=== PATIENT | male | born 1980 | race Caucasian/White ===

== ENCOUNTER 2018-04-07 09:20 | Day surgery (SDC) | payer BC ==
[2018-04-04 14:21] VITALS: BMI 27.2
[~2018-04-07 09:20] MED LIST: CLINDAMYCIN 600 MG in DEXTROSE 5% IN WATER 50 ML IVPB ONE; DEXAMETHASONE SOD PHOSPHATE 10 MG/ML 1 ML VIAL IV ONE; DEXAMETHASONE SOD PHOSPHATE 4 MG/ML 1 ML VIAL IV ONE; FAMOTIDINE 20 MG/2 ML VIAL IV ONE; LACTATED RINGERS 1,000 ML IV SCH; LIDOCAINE 1% 20 ML VIAL (10MG/ML) FOR IV START INTRADERMA PRN; MIDAZOLAM 2 MG/2 ML VIAL IV PRN; ONDANSETRON 4 MG/2 ML VIAL IVP ONE
[2018-04-07] MEDS: OXYMETAZOLINE 0.05% NASL SPRAY 1 SPRAY BOTTLE NASAL ONE ×5 (10:15→10:35)
[2018-04-07] MEDS: ONDANSETRON 4 MG/2 ML VIAL IVP ONE ×2 (10:25→14:28)
[2018-04-07 10:29] LABS: Glucose,Whole Blood 82 mg/dL (75-99)
[2018-04-07] MEDS ORDERED: GLYCOPYRROLATE 0.2 MG/ML 2 ML VIAL ONE (12:12)
[2018-04-07] MEDS ORDERED: fentaNYL (PF) 50 MCG/ML 2 ML AMP ONE (12:12)
[2018-04-07] MEDS ORDERED: DEXAMETHASONE SOD PHOS (MDV) 100 MG/10 ML VIAL ONE (12:12)
[2018-04-07] MEDS ORDERED: LIDOCAINE 1% INJ 10MG/ML (20 ML MDV) ONE (12:12)
[2018-04-07] MEDS ORDERED: PROPOFOL 10 MG/ML 20 ML VIAL IV ONE (12:12)
[2018-04-07] MEDS ORDERED: MIDAZOLAM 2 MG/2 ML VIAL ONE (12:12)
[2018-04-07] MEDS ORDERED: ePHEDrine SULFATE/0.9% NACL/PF 50 MG/5 ML SYRINGE IV ONE (12:12)
[2018-04-07] MEDS ORDERED: NEOSTIGMINE 1 MG/ML 10 ML VIAL ONE (12:12)
[2018-04-07] MEDS ORDERED: ROCURONIUM BROMIDE 10 MG/ML 10 ML VIAL IV ONE (12:12)
[2018-04-07] MEDS ORDERED: FLUORESCEIN STRIPS 1 MG STRIP MISCELLANE ONE (12:59)
[2018-04-07] MEDS ORDERED: LIDOCAINE 1%-EPI 1:100,000 20 ML VIAL SQ ONE (12:59)
[2018-04-07] MEDS ORDERED: BUPIVACAIN-EPI 0.5%-1:200,000 30 ML VIAL SQ ONE (13:01)
[2018-04-07] MEDS ORDERED: EPINEPHrine 1 MG/ML (MDV) 30 ML VIAL TOPICAL ONE (13:02)
[2018-04-07] MEDS ORDERED: HYDROcodone/APAP 5-325MG 1 EACH TAB PO ONE (13:50)
[2018-04-07 14:11] VITALS: TEMP 96.8
[2018-04-07] MEDS: fentaNYL (PF) 50 MCG/ML 2 ML AMP IV PRN ×2 (14:15→14:18)
--- NOTE | 2018-04-07 14:19 | P.OP ---
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, severe Chronic maxillary and ethmoid sinusitis/recurring acute sinusitis Adenoid hypertrophy with obstruction Chronic mouth breathing Disordered sleep pattern Postoperative Diagnosis: Same Procedure(s) Performed: Septoplasty Bilateral submucosal resection of the inferior nasal turbinates with outfracturing compression Bilateral functional endoscopic sinus surgery with total ethmoidectomy and maxillary antrostomy with removal of diseased tissue Rhinoplasty Adenoidectomy Anesthesia: GETA Surgeon: Darrion Victoria Estimated Blood Loss (ml): 20 Pathology: other (Sinonasal) Condition: stable Disposition: PACU Indications for Procedure: This patient has been a chronic mouth breather all of his life. The patient was found have a high arched palate and a narrow crossbite from his mouth breathing and has a severe deviated nasal septum with near total nasal occlusion. He was also found have large obstructive adenoids. He had evidence of recurring acute and chronic sinusitis. The etiology for his total nasal occlusion appears to be a combination of both the deviated nasal septum and large adenoids. The inferior turbinates were in a compensatory fashion enlarged also. 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 Due to the fact that he has failed medical therapy including cortisone nasal sprays, multiple antibiotics, antihistamines, [id number] medications, etc. etc. he has decided to proceed forward with surgery. Surgery would include a septoplasty, turbinate surgery, rhinoplasty for his severe right external nasal deformity, adenoidectomy, functional endoscopic sinus surgery. All risks, benefits, and alternative therapies were discussed. Risks of bleeding, infection, penetration of orbit and brain, anesthetic risk, postoperative bleeding etc. were explained in detail. Consent was obtained and all questions were answered. Operative Findings: Patient was found have a external nasal deformity with the nose severely deviated to the right. Septum was very deviated to the left with near total occlusion and large obstructive inferior turbinates. Adenoids were also large and obstructive and there is chronic sinusitis of the ethmoid and maxillary sinuses with diseased tissue present. Description of Procedure: This patient was taken to the operative room and placed in the supine position. A general inhalation anesthetic was administered the patient by mask and subsequently intubated with a cuffed endotracheal tube by the department of anesthesia. The patient was monitored throughout the entire case by the department of anesthesia. Functioning IV line was in place. Septoplasty- the septum was injected with lidocaine 1% with epinephrine 1 100, 000. Approximately 10 minutes were allowed to wait for full vasoconstrictive effects to take place. A caudal incision was made over the caudal portion of the left septum and the mucoperichondrium. A mucoperichondrial flap was developed to the extent of visualization on the left and a crossover incision was made with for the mucoperichondrial flap development to the extent of visualization on the contralateral side. Excellent visualization was obtained. With use of a [place] and highly elevator, incisions were made in the septal cartilage and the septum was rotated into a midline position. We removed redundant strips of septal cartilage and allowed for mobilization and fixation of the septum to the midline. Once the septum was placed back in the midline over the vomerian groove, the incision was closed with a 4.0 rapid Vicryl in a quilting stitch was used to reapproximate the septal flaps and the suture fixated the septum to the midline. Excellent results were obtained. Turbinate- the inferior turbinates were injected with lidocaine 1% with epinephrine 1 100,000. Approximately 10 minutes were allowed wait for full vasoconstrictive effects to take place. After vasoconstrictive effects were in place, we entered the anterior face of the inferior turbinate with a microdebrider utilizing a 2 mm blade. We did a submucosal resection with use of this microdebrider removing bone and submucosal elements bilaterally. After the bilateral submucosal resection was performed with removal of bone and submucosal elements, the inferior turbinates were outfractured and compressed with use of a [employer] nasal elevator. Excellent airway was obtained. At the end of the case bilateral Diaz splints were placed for stabilization. Attention was then paid to the middle turbinates which were brought medial. The uncinate process was visualized and reflected forward with a Chapman probe. With the use of an endoscope utilizing 0 30 and 90 we perform this procedure and utilize this endoscope on a video camera throughout the entire procedure. This was with use of a Kaminski johnna scope. We then took down the uncinate process with a pediatric backbiter and a microdebrider. After the uncinate process was removed the maxillary sinuses were opened widely with use of a straight boss. We open the maxillary sinuses widely and into the maxillary sinuses with endoscopic visualization. Diseased tissue was removed from the maxillary sinuses bilaterally and the sinuses were opened bilaterally. After the maxillary sinuses were opened and diseased tissue was removed attention was then paid to the ethmoid bulla. From a medial to lateral position we took down the ethmoid bulla. We identified the roof of the maxillary sinus and the inferior attachment of the superior turbinate and then took down the basal lamella and into the posterior ethmoid air cells. We did a total ethmoidectomy with use of an up-biting boss. Excellent results were obtained. Diseased tissue was found in the ethmoid sinuses and removed. Xerogel was placed bilaterally. Excellent hemostasis was obtained throughout the entire case and very low blood was noted. The skull base and orbital aguilar looked good. We reinspected the sinonasal region and no bleeding was encountered. Rhinoplasty- the outer nose and columellar were injected with lidocaine 1% with epinephrine 1 100,000. Approximately 10 minutes were allowed wait for full vasoconstrictive effects to take place. The face was sterilely prepped and draped in usual fashion with a Betadine scrub and intranasal Betadine was utilized. Intercartilaginous incisions were made bilaterally. We elevated the nasal tip skin off the nose and extended I dissection over the nasal dorsum. We did not go lateral so the periosteum would still be intact after the osteotomies. After the skin was elevated off the nasal tip and dorsum reevaluated the contour the nose. This patient had an obvious previous fracture with a widened dorsum and bony irregularity. With use of a gold handle rasp, we reached contoured the bony nasal dorsum to her more statically pleasing appearance. The dorsal hump was taken down. We then also took down the cartilaginous dorsal hump with use of a 15 blade. Once we obtained a excellent lateral side profile and contour the nasal dorsum we then refine the nasal tip was suture fixation of the upper medial portion of the lower lateral cartilages. Better definition of the nasal tip was obtained. Once the tip plasty was performed we then closed the upper lateral cartilages over the nasal dorsum to prevent any irregularity of the nasal dorsum. We made sure that we did not get a Anna beak deformity with adequate resection of the cartilaginous nasal dorsum. We then utilized an insulated tip cautery to make an incision above the anterior aspect of the inferior turbinate. With use of Nivert osteotomes, medial and lateral osteotomies were performed and the nasal bones were fractured into position. This cured the wide dorsal abnormality. The patient was found to have the upper lateral cartilage entire adhesion to the lateral nasal wall and the adhesion was broken. Xerogel was placed up under the lysis of the adhesion. Discussed a severe deviation to the right. Patient had an excellent cosmetic result. We closed the intranasal incisions with use of a 50 rapid Vicryl in an interrupted type fashion. The nose was then taped and casted in the usual fashion. Excellent results were obtained. Patient's family was advised that her nose should avoid any trauma and are hitting of the nose. He is not to lay on nose when he sleeps as this may displace her nose and a repeat surgery may be needed. Patient will be sent home with adequate medications for pain and antibiotics and steroids. Patient is to call me if any problems should arise.
[2018-04-07 14:28] VITALS: RESP 16
[2018-04-07] MEDS: HYDROmorphone 1 MG/ML 1 ML SYRINGE IVP ONE ×2 (14:29→14:35)
[2018-04-07] MEDS ORDERED: PROMETHAZINE INJ 25 MG/ML 1 ML VIAL IVPB ONE (16:45)
[2018-04-07 18:03] VITALS: BP 134/87; PULSE 87
== END 2018-04-07 18:04 | disposition home or self-care (01) ==
LOC: OR 09:20
PROVIDERS: ATTEND Otolaryngology
DX: J34.2 Deviated nasal septum (principal); J34.3 Hypertrophy of nasal turbinates; M95.0 Acquired deformity of nose; J32.0 Chronic maxillary sinusitis; J32.2 Chronic ethmoidal sinusitis; J01.21 Acute recurrent ethmoidal sinusitis; J01.01 Acute recurrent maxillary sinusitis; J35.2 Hypertrophy of adenoids; J30.1 Allergic rhinitis due to pollen; I51.9 Heart disease, unspecified; Z79.2 Long term (current) use of antibiotics; Z79.51 Long term (current) use of inhaled steroids; Z79.899 Other long term (current) drug therapy; Z88.2 Allergy status to sulfonamides; Z88.1 Allergy status to other antibiotic agents; Z88.0 Allergy status to penicillin; Z91.013 Allergy to seafood
CPT/HCPCS: 88305; 88300; 30140; 31255; 31267; 42831; 30420; J0171; J2250; J1100 ×2; J2550; J2710; J2405; J2001; J3010; J1170; J2704

== ENCOUNTER 2020-07-16 23:10 | Observation (INO) | payer BC, OTHER ==
[2020-07-16] MEDS ORDERED: SODIUM CHLORIDE 0.9% 1,000 ML IV STA (23:18)
[2020-07-16] MEDS ORDERED: MORPHINE SULFATE 4 MG/ML SYRINGE IV STA (23:18)
--- NOTE | 2020-07-16 23:20 | ED ---
Chest Pain HPI - General Chief Complaint: Chest Pain Stated Complaint: Chest Tightness Time Seen by Provider: 07/16/20 23:17 Source: patient, RN notes reviewed, old records reviewed Mode of arrival: wheelchair Limitations: no limitations - History of Present Illness Initial Comments: This is a 40-year-old male to the ER for evaluation patient presents for evaluation regards to chest pain. Patient has chest pain chest tightness and shortness of breath going on for about an hour prior to arrival. Symptoms have persisted. No other complaints. A little anxiety no recent travel history sick contact appears cough or congestion MD Complaint: chest pain -: hour(s) (1) Onset: during rest Pain Location: substernal Pain Radiation: none Severity: moderate Severity scale (1-10): 4 Quality: tightness Consistency: constant Improves With: nothing Worsens With: nothing Anginal Symptoms: dyspnea Other Symptoms: cough, palpitations Treatments Prior to Arrival: none - Related Data Home Medications Medication Instructions Recorded Confirmed Clindamycin HCl 300 mg PO ONCE 04/04/18 04/07/18 predniSONE 30 mg PO DAILY 04/04/18 04/07/18 metroNIDAZOLE [Flagyl] 250 mg PO TID 04/07/18 04/07/18 Previous Rx's Medication Instructions Recorded HYDROcodone/APAP 5-325MG [[place] 1 - 2 tab PO Q4-6H PRN 3 Days #36 04/07/18 5-325] tab Meloxicam [Mobic] 15 mg PO DAILY #10 tab 04/07/18 metroNIDAZOLE [Flagyl] 500 mg PO Q8HR #30 tab 04/07/18 Allergies Allergy/AdvReac Type Severity Reaction Status Date / Time cefaclor [From Ceclor] Allergy Rash/Hives Verified 07/16/20 23:14 Fish Containing Products Allergy Unknown Verified 07/16/20 23:14 [Fish] Penicillins Allergy Rash/Hives Verified 07/16/20 23:14 ragweed pollen Allergy Unknown Verified 07/16/20 23:14 shellfish derived [Shellfish] Allergy Anaphylaxis Verified 07/16/20 23:14 Sulfa (Sulfonamide Allergy Rash/Hives Verified 07/16/20 23:14 Antibiotics) clindamycin AdvReac Abdominal Verified 07/16/20 23:14 Pain Review of Systems ROS Statement: Those systems with pertinent positive or pertinent negative responses have been documented in the HPI. ROS Other: All systems not noted in ROS Statement are negative. EKG Findings - EKG Comments: EKG Findings:: EKG shows sinus tachycardia 102 ME 148 QRS 86 QTc 461 Past Medical History Past Medical History: Thyroid Disorder Additional Past Medical History / Comment(s): NASAL POLYPS, CHRONIC SINUSITIS History of Any Multi-Drug Resistant Organisms: None Reported Past Surgical History: Orthopedic Surgery Additional Past Surgical History / Comment(s): LEFT WRIST GANGLION CYST REMOVED, TUBES IN EARS Past Anesthesia/Blood Transfusion Reactions: No Reported Reaction Past Psychological History: PTSD Smoking Status: Never smoker Past Alcohol Use History: Occasional Past Drug Use History: None Reported - Past Family History Mother Family Medical History: No Reported History General Exam Limitations: no limitations General appearance: alert, in no apparent distress Head exam: Present: atraumatic, normocephalic, normal inspection Eye exam: Present: normal appearance, PERRL, EOMI. Absent: scleral icterus, conjunctival injection, periorbital swelling ENT exam: Present: normal exam, mucous membranes moist Neck exam: Present: normal inspection. Absent: tenderness, meningismus, lymphadenopathy Respiratory exam: Present: normal lung sounds bilaterally. Absent: respiratory distress, wheezes, rales, rhonchi, stridor Cardiovascular Exam: Present: regular rate, normal rhythm, normal heart sounds. Absent: systolic murmur, diastolic murmur, rubs, gallop, clicks GI/Abdominal exam: Present: soft, normal bowel sounds. Absent: distended, tenderness, guarding, rebound, rigid Extremities exam: Present: normal inspection, full ROM, normal capillary refill. Absent: tenderness, pedal edema, joint swelling, calf tenderness Back exam: Present: normal inspection Neurological exam: Present: alert, oriented X3, CN II-XII intact Psychiatric exam: Present: normal affect, normal mood Skin exam: Present: warm, dry, intact, normal color. Absent: rash Course Vital Signs 07/16/20 07/17/20 23:12 00:30 Temperature 98.9 F Pulse Rate 108 H 98 Respiratory 22 18 Rate Blood Pressure 162/101 131/88 O2 Sat by Pulse 97 95 Oximetry - Reevaluation(s) Reevaluation #1: 07/17/20 00:52 Medical records reviewed Reevaluation #2: 07/17/20 00:52 Symptoms markedly improved here in the emergency department Reevaluation #3: 07/17/20 00:52 Patient informed of results and questions have been answered Chest Pain MDM - MDM 40 male with atypical chest pain coming in for chest pain, patient has improved vital signs here in the ER, normal troponin normal EKG CT of chest is negative. Patient can be discharged Disposition Clinical Impression: Atypical chest pain, Chest pain Disposition: HOME SELF-CARE Condition: Good Instructions (If sedation given, give patient instructions): Chest Pain (ED) Is patient prescribed a controlled substance at d/c from ED?: No Referrals: Mary Becker MD [Primary Care Provider] - 1-2 days
[2020-07-16 23:44] LABS: Basophils # (A) 0.1 k/uL (0-0.2); Basophils % (A) 0 %; Eosinophils # (A) 0.3 k/uL (0-0.7); Eosinophils % (A) 3 %; HCT 45.2 % (39.0-53.0); HGB 15.2 gm/dL (13.0-17.5); Lymphocytes # (A) 1.9 k/uL (1.0-4.8); Lymphocytes % (A) 14 %; MCH 31.4 pg (25.0-35.0); MCHC 33.6 g/dL (31.0-37.0); MCV 93.6 fL (80.0-100.0); Mean Platelet Volume 7.2; Monocytes # (A) 0.8 k/uL (0-1.0); Monocytes % (A) 6 %; Neutrophils % (A) 76 %; Platelet Count 290 k/uL (150-450); RBC 4.83 m/uL (4.30-5.90); RDW 12.8 % (11.5-15.5); WBC 13.2 k/uL (3.8-10.6)
[2020-07-16 23:54] LABS: ALT 23 U/L (4-49); AST 28 U/L (17-59); African American GFR (CKD) >90 (>60 ml/min/1.73 sqM); Albumin 4.6 g/dL (3.5-5.0); Alkaline Phosphatase 83 U/L (38-126); Anion Gap 6 mmol/L; Blood Urea Nitrogen 18 mg/dL (9-20); Calcium 9.9 mg/dL (8.4-10.2); Carbon Dioxide 27 mmol/L (22-30); Chloride 105 mmol/L (98-107); Creatine Kinase 160 U/L (55-170); Glucose 131 mg/dL (74-99); Lipase 144 U/L (23-300); Magnesium 2.1 mg/dL (1.6-2.3); Non-African American GFR(CKD) >90 (>60 ml/min/1.73 sqM); Potassium 4.3 mmol/L (3.5-5.1); Sodium 138 mmol/L (137-145); Total Bilirubin 0.3 mg/dL (0.2-1.3)
[2020-07-16 23:58] LABS: D-Dimer 0.19 mg/L FEU (<0.60); INR 1.1 (<1.2)
--- NOTE | 2020-07-17 00:02 | CT ---
EXAM: CT Angiography Chest With Intravenous Contrast CLINICAL HISTORY: Chest pain. TECHNIQUE: Axial computed tomographic angiography images of the chest with intravenous contrast. CTDI is 17.57 mGy and DLP is 495.90 mGy-cm. This CT exam was performed using one or more of the following dose reduction techniques: automated exposure control, adjustment of the mA and/or kV according to patient size, and/or use of iterative reconstruction technique. MIP reconstructed images were created and reviewed. COMPARISON: No previous study. FINDINGS: Pulmonary arteries: No central pulmonary embolism. Peripheral branch of the pulmonary arteries are unremarkable. Aorta: Thoracic aorta is unremarkable per No thoracic aortic aneurysm. Lungs: Unremarkable. No mass. No consolidation. Pleural space: No pulmonary nodules or pleural effusions. No pneumothorax. Heart: Heart is normal in size. No significant pericardial effusion. No evidence of RV dysfunction. Thyroid: The thyroid gland is unremarkable. Bones/joints: Mild degenerative disc disease of the thoracic spine. No acute fracture. No dislocation. Soft tissues: Unremarkable. Lymph nodes: Unremarkable. No enlarged lymph nodes. Liver: Diffuse fatty liver. Probable simple hepatic cysts. Adrenals: A 0.5 cm probable left adrenal adenoma which requires no follow-up. IMPRESSION: No central or peripheral pulmonary emboli.
[2020-07-17 00:12] LABS: Creatine Kinase MB 3.7 ng/mL (0.0-2.4); Troponin I <0.012 ng/mL (0.000-0.034)
[2020-07-17] MEDS ORDERED: NITROGLYCERIN SL TABS 0.4 MG TAB SUBLINGUAL PRN (01:09)
[2020-07-17] MEDS ORDERED: MORPHINE SULFATE 4 MG/ML SYRINGE IV PRN (01:09)
--- NOTE | 2020-07-17 01:12 | ED ---
Medical Decision Making - Medical Decision Making 40 male DF for evaluation patient Dese for evaluation regards to chest pain, prior to discharge patient had another event of chest pain anxiety became even tearful at times. Short of breath and heart rate was in the 120s sinus tachycardia. Due to these change in symptoms and findings, patient be admitted for cardiac observation possible placement event monitor Records will be requested from Will Lopez as patient did have all testing "" done in the last 2 days - Lab Data Result diagrams: 07/16/20 23:38 07/16/20 23:38 Lab Results 07/16/20 07/16/20 07/16/20 Range/Units 23:38 23:38 23:38 WBC 13.2 H (3.8-10.6) k/uL RBC 4.83 (4.30-5.90) m/uL Hgb 15.2 (13.0-17.5) gm/dL Hct 45.2 (39.0-53.0) % MCV 93.6 (80.0-100.0) fL MCH 31.4 (25.0-35.0) pg MCHC 33.6 (31.0-37.0) g/dL RDW 12.8 (11.5-15.5) % Plt Count 290 (150-450) k/uL MPV 7.2 Neutrophils % 76 % Lymphocytes % 14 % Monocytes % 6 % Eosinophils % 3 % Basophils % 0 % Neutrophils # 10.0 H (1.3-7.7) k/uL Lymphocytes # 1.9 (1.0-4.8) k/uL Monocytes # 0.8 (0-1.0) k/uL Eosinophils # 0.3 (0-0.7) k/uL Basophils # 0.1 (0-0.2) k/uL PT 11.0 (9.0-12.0) sec INR 1.1 (<1.2) APTT 26.0 (22.0-30.0) sec D-Dimer 0.19 (<0.60) mg/L FEU Sodium 138 (137-145) mmol/L Potassium 4.3 (3.5-5.1) mmol/L Chloride 105 (98-107) mmol/L Carbon Dioxide 27 (22-30) mmol/L Anion Gap 6 mmol/L BUN 18 (9-20) mg/dL Creatinine 0.97 (0.66-1.25) mg/dL Est GFR (CKD-EPI)AfAm >90 (>60 ml/min/1.73 sqM) Est GFR (CKD-EPI)NonAf >90 (>60 ml/min/1.73 sqM) Glucose 131 H (74-99) mg/dL Calcium 9.9 (8.4-10.2) mg/dL Magnesium 2.1 (1.6-2.3) mg/dL Total Bilirubin 0.3 (0.2-1.3) mg/dL AST 28 (17-59) U/L ALT 23 (4-49) U/L Alkaline Phosphatase 83 (38-126) U/L Creatine Kinase 160 (55-170) U/L CK-MB (CK-2) (0.0-2.4) ng/mL Troponin I (0.000-0.034) ng/mL NT-Pro-B Natriuret Pep pg/mL Total Protein 8.0 (6.3-8.2) g/dL Albumin 4.6 (3.5-5.0) g/dL Lipase 144 (23-300) U/L 07/16/20 07/16/20 Range/Units 23:38 23:38 WBC (3.8-10.6) k/uL RBC (4.30-5.90) m/uL Hgb (13.0-17.5) gm/dL Hct (39.0-53.0) % MCV (80.0-100.0) fL MCH (25.0-35.0) pg MCHC (31.0-37.0) g/dL RDW (11.5-15.5) % Plt Count (150-450) k/uL MPV Neutrophils % % Lymphocytes % % Monocytes % % Eosinophils % % Basophils % % Neutrophils # (1.3-7.7) k/uL Lymphocytes # (1.0-4.8) k/uL Monocytes # (0-1.0) k/uL Eosinophils # (0-0.7) k/uL Basophils # (0-0.2) k/uL PT (9.0-12.0) sec INR (<1.2) APTT (22.0-30.0) sec D-Dimer (<0.60) mg/L FEU Sodium (137-145) mmol/L Potassium (3.5-5.1) mmol/L Chloride (98-107) mmol/L Carbon Dioxide (22-30) mmol/L Anion Gap mmol/L BUN (9-20) mg/dL Creatinine (0.66-1.25) mg/dL Est GFR (CKD-EPI)AfAm (>60 ml/min/1.73 sqM) Est GFR (CKD-EPI)NonAf (>60 ml/min/1.73 sqM) Glucose (74-99) mg/dL Calcium (8.4-10.2) mg/dL Magnesium (1.6-2.3) mg/dL Total Bilirubin (0.2-1.3) mg/dL AST (17-59) U/L ALT (4-49) U/L Alkaline Phosphatase (38-126) U/L Creatine Kinase (55-170) U/L CK-MB (CK-2) 3.7 H (0.0-2.4) ng/mL Troponin I <0.012 (0.000-0.034) ng/mL NT-Pro-B Natriuret Pep <11 pg/mL Total Protein (6.3-8.2) g/dL Albumin (3.5-5.0) g/dL Lipase (23-300) U/L Disposition Clinical Impression: Atypical chest pain, Chest pain, Tachycardia Disposition: ADMITTED IP TO THIS [facility] Condition: Undetermined Instructions (If sedation given, give patient instructions): Chest Pain (ED) Referrals: Mary Becker MD [Primary Care Provider] - 1-2 days
[2020-07-17] MEDS ORDERED: SODIUM CHLORIDE 0.9% 1,000 ML IV SCH (01:15)
[2020-07-17 03:59] VITALS: RESP 16
[2020-07-17 08:28] VITALS: BP 125/82; PULSE 92; TEMP 98
[2020-07-17] MEDS ORDERED: LEVOTHYROXINE 25 MCG TAB PO SCH (10:30)
--- NOTE | 2020-07-17 12:51 | P.CRDCN ---
History of Present Illness Consult date: 07/17/20 History of present illness: CHIEF COMPLAINT: Chest pain HISTORY OF PRESENT ILLNESS: This is a 40-year-old male with a past medical history significant for recently diagnosed hypothyroidism, anxiety, and PTSD. 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 We have been asked to see the patient in consultation for chest pain. Patient examined this might bedside. Patient states he was evaluated at [facility] 2 nights ago for chest pain. Patient had an echocardiogram completed at that time with an EF of 55% and no wall motion abnormalities noted. He also underwent a cardiolyte stress test with no evidence of stress-induced myocardial ischemia. He was discharged home. Patient presented to [facility] yesterday after he experienced another episode of chest pain. He states he was lying in bed yesterday night when he began to feel a warm sensation coming over his whole body. He reports he began having chest tightness after that. He denies any radiation of the pain. He also reports that he felt his whole body shaking or tremoring. He reports feeling palpitations as well. DIAGNOSTICS: EKG reveals sinus tachycardia Chest CTA: Negative for pulmonary emboli Laboratory data: WBC 13.2. Hemoglobin 15.2. Platelet count 290. D-dimer 0.19. Sodium 138. Potassium 4.3. BUN 18. Creatinine 0.97. Magnesium 2.1. Troponin negative 3 Current home cardiac medications include none REVIEW OF SYSTEMS: At the time of my exam: CONSTITUTIONAL: Denies fever or chills. HEENT: Denies blurred vision, vision changes, or eye pain. Denies hemoptysis CARDIOVASCULAR: Denies chest pain, orthopnea, PND or palpitations RESPIRATORY: No shortness of breath. GASTROINTESTINAL: Denies abdominal pain. Denies nausea or vomiting. HEMATOLOGIC: Denies bleeding disorders. GENITOURINARY: Denies any blood in urine. SKIN: Denies pruitis. Denies rash. PHYSICAL EXAM: VITAL SIGNS: Reviewed. GENERAL: Well-developed in no acute distress. HEENT: Head is normocephalic. Pupils are equal, round. Sclerae anicteric. Mucous membranes of the mouth are moist. Neck supple. No JVD or thyromegaly LUNGS: Respirations even and unlabored. Lungs essentially clear to auscultation bilaterally. HEART: Regular rate and rhythm. S1 and S2 heard. ABDOMEN: Soft. Nondistended. Nontender. EXTREMITIES: Normal range of motion. No clubbing or cyanosis. Peripheral pulses intact. No lower extremity edema NEUROLOGIC: Awake and alert. Oriented x 3. ASSESSMENT: Chest pain, atypical Palpitations Recent diagnosis of hypothyroidism PLAN: An acute coronary event has been ruled out Records obtained from Will Lopez reviewed. Patient with a normal echocardiogram and normal stress test performed [address] event monitor today secondary to palpitations Patient may be discharged home today and follow up outpatient with Dr. Lopez Nurse practitioner note has been reviewed by physician. Signing provider agrees with the documented findings, assessment, and plan of care. Past Medical History Past Medical History: Thyroid Disorder Additional Past Medical History / Comment(s): NASAL POLYPS, CHRONIC SINUSITIS History of Any Multi-Drug Resistant Organisms: None Reported Past Surgical History: Orthopedic Surgery Additional Past Surgical History / Comment(s): LEFT WRIST GANGLION CYST REMOVED, TUBES IN EARS Past Anesthesia/Blood Transfusion Reactions: No Reported Reaction Past Psychological History: PTSD Additional Psychological History / Comment(s): STATES SLIGHT Smoking Status: Never smoker Past Alcohol Use History: Occasional Past Drug Use History: None Reported - Past Family History Mother Family Medical History: No Reported History Medications and Allergies Home Medications Medication Instructions Recorded Confirmed Type Levothyroxine Sodium [Synthroid] See Taper PO DAILY 07/17/20 07/17/20 History Loratadine [Claritin] 10 mg PO DAILY 07/17/20 07/17/20 History Allergies Allergy/AdvReac Type Severity Reaction Status Date / Time cefaclor [From Ceclor] Allergy Rash/Hives Verified 07/17/20 06:46 Fish Containing Products Allergy Unknown Verified 07/17/20 06:46 [Fish] Penicillins Allergy Rash/Hives Verified 07/17/20 06:46 ragweed pollen Allergy Unknown Verified 07/17/20 06:46 shellfish derived [Shellfish] Allergy Anaphylaxis Verified 07/17/20 06:46 Sulfa (Sulfonamide Allergy Rash/Hives Verified 07/17/20 06:46 Antibiotics) clindamycin AdvReac Abdominal Verified 07/17/20 06:46 Pain Physical Exam Vitals: Vital Signs Temp Pulse Pulse Resp BP BP Pulse Ox 07/17/20 08:25 98.0 F 92 16 125/82 98 07/17/20 03:00 98.1 F 102 H 16 134/86 97 12/30/20 02:39 98.4 F 104 H 18 116/78 96 07/17/20 02:00 95 18 109/78 96 07/17/20 01:00 96 18 116/88 95 07/17/20 00:30 98 18 131/88 95 07/16/20 23:12 98.9 F 108 H 22 162/101 97 Intake and Output 07/16/20 07/17/20 07/17/20 22:59 06:59 14:59 Output Total 1000 Balance -1000 Output: Urine 1000 Other: Voiding Method Toilet Urinal # Voids 1 Weight 88.451 kg Results 07/16/20 23:38 07/16/20 23:38 Cardiac Enzymes 07/16/20 07/16/20 07/17/20 Range/Units 23:38 23:38 02:52 AST 28 (17-59) U/L CK-MB (CK-2) 3.7 H (0.0-2.4) ng/mL Troponin I <0.012 <0.012 (0.000-0.034) ng/mL 07/17/20 Range/Units 06:35 AST (17-59) U/L CK-MB (CK-2) (0.0-2.4) ng/mL Troponin I <0.012 (0.000-0.034) ng/mL Coagulation 07/16/20 Range/Units 23:38 PT 11.0 (9.0-12.0) sec APTT 26.0 (22.0-30.0) sec CBC 07/16/20 Range/Units 23:38 WBC 13.2 H (3.8-10.6) k/uL RBC 4.83 (4.30-5.90) m/uL Hgb 15.2 (13.0-17.5) gm/dL Hct 45.2 (39.0-53.0) % Plt Count 290 (150-450) k/uL Comprehensive Metabolic Panel 07/16/20 Range/Units 23:38 Sodium 138 (137-145) mmol/L Potassium 4.3 (3.5-5.1) mmol/L Chloride 105 (98-107) mmol/L Carbon Dioxide 27 (22-30) mmol/L BUN 18 (9-20) mg/dL Creatinine 0.97 (0.66-1.25) mg/dL Glucose 131 H (74-99) mg/dL Calcium 9.9 (8.4-10.2) mg/dL AST 28 (17-59) U/L ALT 23 (4-49) U/L Alkaline Phosphatase 83 (38-126) U/L Total Protein 8.0 (6.3-8.2) g/dL Albumin 4.6 (3.5-5.0) g/dL Current Medications Generic Name Dose Route Start Last Admin Trade Name Freq PRN Reason Stop Dose Admin Levothyroxine Sodium 25 mcg 07/17/20 10:30 07/17/20 11:12 Levothyroxine 25 Mcg Tab PO 25 mcg DAILY@0630 DANYELLE Administration Loratadine 10 mg 07/18/20 09:00 Loratadine 10 Mg Tab PO DAILY DANYELLE Morphine Sulfate 4 mg 07/17/20 01:09 Morphine Sulfate 4 Mg/Ml Syringe IV Q4HR PRN Chest Pain Nitroglycerin 0.4 mg 07/17/20 01:09 Nitroglycerin Sl Tabs 0.4 Mg Tab SUBLINGUAL Q5M PRN Chest Pain Intake and Output 07/16/20 07/17/20 07/17/20 22:59 06:59 14:59 Output Total 1000 Balance -1000 Output: Urine 1000 Other: Voiding Method Toilet Urinal # Voids 1 Weight 88.451 kg 07/16/20 23:38 07/16/20 23:38
[2020-07-18] MEDS ORDERED: LORATADINE 10 MG TAB PO SCH (09:00)
[2020-07-18] MEDS ORDERED: ASPIRIN 325 MG TAB PO SCH (09:00)
== END 2020-07-17 15:33 | disposition home or self-care (01) ==
LOC: EC 23:10 → 1SOBS 07-17 01:09
PROVIDERS: ADMIT Hospitalist; ATTEND Hospitalist
DX: R07.89 Other chest pain (principal); R06.02 Shortness of breath; R00.2 Palpitations; R00.0 Tachycardia, unspecified; Z87.09 Personal history of other diseases of the respiratory system; Z98.890 Other specified postprocedural states; F43.10 Post-traumatic stress disorder, unspecified; E03.9 Hypothyroidism, unspecified; F41.9 Anxiety disorder, unspecified; Z79.52 Long term (current) use of systemic steroids; Z79.899 Other long term (current) drug therapy; Z79.1 Long term (current) use of non-steroidal anti-inflammatories (NSAID); Z88.1 Allergy status to other antibiotic agents; Z88.0 Allergy status to penicillin; Z88.2 Allergy status to sulfonamides; Z91.018 Allergy to other foods; Z91.048 Other nonmedicinal substance allergy status
CPT/HCPCS: 96361 ×2; 96374; 99285; 36415; 93005; 93270; 85379; 83880; 80053; 82550; 82553; 83690; 83735; 84484 ×2; 85025; 85610; 85730; 87635; 71275; G0378; J2270; Q9967

== ENCOUNTER 2020-11-24 08:57 | Emergency (ER) | payer OTHER ==
[2020-11-24 09:03] VITALS: TEMP 97.6
[2020-11-24] MEDS ORDERED: DEXAMETHASONE SOD PHOSPHATE 4 MG/ML 1 ML VIAL PO ONE (09:24)
--- NOTE | 2020-11-24 09:32 | ED ---
Male Urogenital HPI - General Chief complaint: Urogenital Stated complaint: Swelling in Groin Time Seen by Provider: 11/24/20 09:11 Source: patient, RN notes reviewed Mode of arrival: ambulatory Limitations: no limitations - History of Present Illness Initial comments: 40-year-old male presents emergency from chief last scrotal swelling. Patient states started after taking some antibiotics. Patient states it cleared up for 1 week and states has returned. He was using some hydrocortisone states that it really wasn't helping much but states he started using some antifungal now has swelling to his penile shaft. Patient states it's itchy. Patient denies any other complaints. Denies any significant sweating. - Related Data Home Medications Medication Instructions Recorded Confirmed Levothyroxine Sodium [Synthroid] See Taper PO DAILY 07/17/20 07/17/20 Loratadine [Claritin] 10 mg PO DAILY 07/17/20 07/17/20 Previous Rx's Medication Instructions Recorded Clotrimazole/Betamethasone Dip 1 applic TOPICAL BID #30 gm 11/24/20 [Lotrisone Cream] Allergies Allergy/AdvReac Type Severity Reaction Status Date / Time cefaclor [From Ceclor] Allergy Rash/Hives Verified 07/17/20 06:46 Fish Containing Products Allergy Unknown Verified 07/17/20 06:46 [Fish] Penicillins Allergy Rash/Hives Verified 07/17/20 06:46 ragweed pollen Allergy Unknown Verified 07/17/20 06:46 shellfish derived [Shellfish] Allergy Anaphylaxis Verified 07/17/20 06:46 Sulfa (Sulfonamide Allergy Rash/Hives Verified 07/17/20 06:46 Antibiotics) clindamycin AdvReac Abdominal Verified 07/17/20 06:46 Pain Review of Systems ROS Statement: Those systems with pertinent positive or pertinent negative responses have been documented in the HPI. ROS Other: All systems not noted in ROS Statement are negative. Past Medical History Past Medical History: Thyroid Disorder Additional Past Medical History / Comment(s): NASAL POLYPS, CHRONIC SINUSITIS History of Any Multi-Drug Resistant Organisms: None Reported Past Surgical History: Orthopedic Surgery Additional Past Surgical History / Comment(s): LEFT WRIST GANGLION CYST REMOVED, TUBES IN EARS Past Anesthesia/Blood Transfusion Reactions: No Reported Reaction Past Psychological History: Anxiety, PTSD Smoking Status: Never smoker Past Alcohol Use History: None Reported Past Drug Use History: None Reported - Past Family History Mother Family Medical History: No Reported History General Exam Limitations: no limitations General appearance: alert, in no apparent distress Head exam: Present: atraumatic, normocephalic, normal inspection Respiratory exam: Present: normal lung sounds bilaterally. Absent: respiratory distress, wheezes, rales, rhonchi, stridor Cardiovascular Exam: Present: regular rate, normal rhythm, normal heart sounds. Absent: systolic murmur, diastolic murmur, rubs, gallop, clicks GI/Abdominal exam: Present: soft, normal bowel sounds. Absent: distended, tenderness, guarding, rebound, rigid exam: Present: scrotal swelling. Absent: normal inspection (Swelling, mild erythema noted) Course Vital Signs 11/24/20 08:59 Temperature 97.6 F Pulse Rate 103 H Respiratory 18 Rate Blood Pressure 139/79 O2 Sat by Pulse 98 Oximetry Medical Decision Making - Medical Decision Making Patient appears to have some underlying fungal infection maybe slightly ALLERGIC nature. Patient was discharged from [facility]. Disposition Clinical Impression: Tinea cruris Disposition: HOME SELF-CARE Condition: Stable Instructions (If sedation given, give patient instructions): Skin Yeast Infection (ED) Additional Instructions: Please return to the Emergency Department if symptoms worsen or any other concerns. Prescriptions: Clotrimazole/Betamethasone Dip [Lotrisone Cream] 1 applic TOPICAL BID #30 gm Is patient prescribed a controlled substance at d/c from ED?: No Referrals: Francois Bonilla PAC [Primary Care Provider] - 1-2 days Time of Disposition: 09:31
[2020-11-24 10:16] VITALS: BP 118/87; PULSE 97; RESP 16
[2020-11-24 11:28] LABS: Appearance,Urine Clear (Clear); Bilirubin,Urine Negative (Negative); Blood,Urine Negative (Negative); Color,Urine Light Yellow; Glucose,Urine (UA) Negative (Negative); Ketones,Urine Negative (Negative); Leukocyte Esterase,Urine Negative (Negative); Nitrite,Urine Negative (Negative); PH, Urine 6.5 (5.0-8.0); Protein,Urine Trace (Negative); Specific Gravity,Urine 1.018 (1.001-1.035); Urobilinogen,Urine <2.0 mg/dL (<2.0)
== END 2020-11-24 10:44 | disposition home or self-care (01) ==
LOC: EC 08:57
DX: B35.6 Tinea cruris (principal); F41.9 Anxiety disorder, unspecified; E07.9 Disorder of thyroid, unspecified; Z79.890 Hormone replacement therapy; Z88.0 Allergy status to penicillin; Z88.1 Allergy status to other antibiotic agents; Z88.2 Allergy status to sulfonamides
CPT/HCPCS: 81003; 99283; J1100

== ENCOUNTER → 2020-12-30 | Outpatient (CLI) | payer OTHER ==
--- NOTE | 2020-12-30 11:21 | US ---
EXAMINATION TYPE: US thyroid st tissue head/neck DATE OF EXAM: 12/30/2020 COMPARISON: NONE CLINICAL HISTORY: M54.9Dorsalgia, unspecified E03.9Hypothyroidism. GLAND SIZE: Right Lobe: 5.7 x 1.8 x 1.5 cm Overall Parenchyma: homogenous Left Lobe: 5.3 x 1.4 x 1.9 cm Overall Parenchyma: homogeneous Isthmus Thickness: 0.2 cm NODULES RIGHT: # of nodules measured on right: 0 LEFT: # of nodules measured on left: 1 1. 0.8 X 0.7 x 0.7 cm, lower , solid or almost completely solid, hypoechoic nodule, which is wider than tall, with smooth margins, with echogenic foci. ISTHMUS: # of nodules measured in the isthmus: 0 Bilateral neck scanned, no evidence of lymphadenopathy. IMPRESSION: 0.8 cm hypoechoic left thyroid nodule, as described. 2017 ACR TI-RADS LEVEL: TR-RADS 4 - Moderately Suspicious: Follow if > 1 cm, FNA if > 1.5 cm *Highest TI-RADS level nodule reported
== END | disposition home or self-care (01) ==
LOC: RADUSWWP 09:37
DX: E04.1 Nontoxic single thyroid nodule (principal); E03.9 Hypothyroidism, unspecified
CPT/HCPCS: 76536

== ENCOUNTER → 2021-03-27 | Outpatient (CLI) | payer OTHER ==
--- NOTE | 2021-03-28 07:50 | US ---
EXAMINATION TYPE: US thyroid st tissue head/neck DATE OF EXAM: 03/27/2021 COMPARISON: NONE CLINICAL HISTORY: M54.9 Dorsalgia, unspecified..... hypothyroidism, on meds, nodule seen 3 months ago GLAND SIZE: Right Lobe: 5.5 x 1.2 x 1.8 cm Overall Parenchyma: homogenous Left Lobe: 4.7 x 1.4 x 1.4 cm Overall Parenchyma: homogeneous Isthmus Thickness: 0.2 cm NODULES RIGHT: # of nodules measured on right: 0 LEFT: # of nodules measured on left: 1 1. 0.7 X 0.8 x 0.9 cm, lower, mixed cystic and solid, hypoechoic nodule, which is wider than tall, with smooth margins, without echogenic foci. Prior size: 0.8 x 0.7 x 0.7 cm ISTHMUS: # of nodules measured in the isthmus: 0 Bilateral neck scanned, no evidence of lymphadenopathy. IMPRESSION: Stable nonspecific subcentimeter nodularity.
== END | disposition home or self-care (01) ==
LOC: RADUSWWP 16:18
DX: M54.9 Dorsalgia, unspecified (principal); E03.9 Hypothyroidism, unspecified
CPT/HCPCS: 76536

== ENCOUNTER → 2022-01-29 | Outpatient (CLI) | payer OTHER ==
--- NOTE | 2022-01-29 14:57 | US ---
EXAMINATION TYPE: US thyroid st tissue head/neck DATE OF EXAM: 01/29/2022 COMPARISON: US 03/2021 CLINICAL HISTORY: E03.9 HYPOTHYROIDISM. Hypothyroidism, Lt thyroid nodule GLAND SIZE: Right Lobe: 5.7 x 1.7 x 1.9 cm Overall Parenchyma: homogenous Left Lobe: 4.4 x 1.5 x 1.9 cm Overall Parenchyma: homogeneous Isthmus Thickness: 0.3 cm NODULES RIGHT: # of nodules measured on right: 0 LEFT: # of nodules measured on left: 1 1. 1.0 X 0.9 x 0.9 cm, lower mid, solid or almost completely solid, hypoechoic nodule, which is wi rosie than tall, with smooth margins, without echogenic foci. Prior size: 0.7 x 0.8 x 0.9 cm ISTHMUS: # of nodules measured in the isthmus: 0 Bilateral neck scanned, no evidence of lymphadenopathy. IMPRESSION: Left thyroid enlargement with nonspecific left thyroid nodule. 2017 ACR TI-RADS LEVEL: *Highest TI-RADS level nodule reported
== END | disposition home or self-care (01) ==
LOC: RADUSWWP 14:14
DX: E03.9 Hypothyroidism, unspecified (principal)
CPT/HCPCS: 76536

== ENCOUNTER → 2023-02-22 | Outpatient (CLI) | payer OTHER ==
--- NOTE | 2023-02-23 09:31 | US ---
EXAMINATION TYPE: US thyroid st tissue head/neck DATE OF EXAM: 02/22/2023 COMPARISON: NONE CLINICAL INDICATION: Male, 43 years old with history of E03.9; hypothyroidism, Lt nodule f/u GLAND SIZE: Right Lobe: 5.7x1.6x1.8 cm Overall Parenchyma: homogenous Left Lobe: 5.1x1.8x1.9 cm Overall Parenchyma: homogeneous Isthmus Thickness: 0.3 cm NODULES RIGHT: # of nodules measured on right: 0 LEFT: # of nodules measured on left: 0 1. 1.0 X 0.9 x 0.9 cm, lower lateral, solid or almost completely solid, very hypoechoic nodule, whi ch is wider than tall, with smooth margins, without echogenic foci. Prior size: 1.0 x 0.9 x 0.9 cm ISTHMUS: # of nodules measured in the isthmus: 0 Bilateral neck scanned, no evidence of lymphadenopathy. IMPRESSION: Moderately Suspicious: FNA if ? 1.5 cm; Follow if ? 1 cm at 1, 2, 3, and 5 y 2017 ACR TI-RADS LEVEL: TR 4 *Highest TI-RADS level nodule reported
== END | disposition home or self-care (01) ==
LOC: RADUSWWP 16:57
DX: E04.1 Nontoxic single thyroid nodule (principal); E03.9 Hypothyroidism, unspecified
CPT/HCPCS: 76536

== ENCOUNTER → 2024-04-10 | Outpatient (CLI) | payer OTHER ==
--- NOTE | 2024-04-10 18:30 | US ---
EXAMINATION TYPE: US thyroid st tissue head/neck DATE OF EXAM: 04/10/2024 COMPARISON: US 02/22/2023 CLINICAL INDICATION: Male, 44 years old with history of E03.9 HYPOTHYROIDISM, UNSPECIFIED; Patient ta kes synthroid. Hypothyroidism. GLAND SIZE: Right Lobe: 5.9 x 2.1 x 1.8 cm Overall Parenchyma: homogeneous Left Lobe: 5.5 x 1.7 x 1.7 cm Overall Parenchyma: homogeneous Isthmus Thickness: 0.26 cm NODULES RIGHT: # of nodules measured on right: 0 LEFT: # of nodules measured on left: 1 1. 1.4 X 1.0 x 0.9 cm, lower mid, solid or almost completely solid, hypoechoic nodule, which is wid er than tall, with smooth margins, without echogenic foci. Prior size: 0.9 x 1.0 x 0.9 cm ISTHMUS: # of nodules measured in the isthmus: 0 Bilateral neck scanned, no evidence of lymphadenopathy. IMPRESSION: 1. Thyroid gland enlargement. 2.Moderately Suspicious: FNA if ? 1.5 cm; Follow if ? 1 cm at 1, 2, 3, and 5 y 2017 ACR TI-RADS LEVEL: TR4 *Highest TI-RADS level nodule reported [facility], , 04/10/2024 6:27 PM
== END | disposition home or self-care (01) ==
LOC: RADUSWWP 16:24
PROVIDERS: ATTEND Family Medicine
DX: E03.9 Hypothyroidism, unspecified
CPT/HCPCS: 76536